=== PATIENT | male | born 1940 | race Caucasian/White ===

== ENCOUNTER 2021-12-12 15:29 | Inpatient (IN) ==
[2021-12-12] MEDS ORDERED: ACETAMINOPHEN 500 MG TABLET PO STA (16:04)
[2021-12-12 16:28] LABS: Basophils % 0.3 % (0.0-0.8); Hematocrit 39.6 VOL% (42.0-52.0); Hemoglobin 13.3 GM/DL (14.0-18.0); Immature Granulocytes % 1.3 %; Immature Granulocytes Absolute 0.08 #; Lymphocytes # 0.7 10*3/uL (1.4-4.0); Lymphocytes % 11.5 % (21.2-54.2); Mean Corpuscular HGB Conc 33.6 GM/DL (32-36); Mean Corpuscular Volume 88.8 FL (87-102); Mean Platelet Volume 9.3 FL (9.6-12.0); Monocytes # 1.6 10*3/uL (0.11-0.8); Monocytes % 26.7 % (1.7-12.7); Neutrophils % 60.2 % (38.7-73.9); Platelet Count 238 T/CUMM (130-400); Red Blood Count 4.46 MC/CUMM (3.8-5.5); Red Cell Distribution Width 14.1 % (9.3-17.3); White Blood Count 6.1 T/CUMM (4-12)
[2021-12-12 16:39] LABS: PT Patient Result 10.7 SECS (10.5-12.0)
[2021-12-12 16:46] LABS: Albumin 3.6 G/DL (3.4-5.0); Bilirubin,Total 0.8 MG/DL (0.20-1.00); Calcium 9.3 MG/DL (8.5-10.1); Osmolality,Calculated 269.2 MOS/KG (273-304); Potassium 3.5 MMOL/L (3.5-5.1); Total Protein 6.8 G/DL (6.4-8.2)
[2021-12-12 17:52] LABS: Lymphocytes 12 % (20-55); Total Cells Counted 100
[2021-12-12 17:53] LABS: Hypochromia Slight
[2021-12-12 17:54] LABS: Platelet Estimate Normal
[2021-12-12 18:49] LABS: Bilirubin,Urine Negative (Negative); Blood, Urine Moderate mg/dL (Negative); Glucose,Urine (UA) Negative (Negative); Ketones,Urine Negative (Negative); Mucus,Urine Occasional /LPF (Occasional); Nitrite,Urine Negative (Negative); Protein,Urine Negative (Negative); RBC,Urine 5 /HPF (0-4); Urine Appearance Clear (Clear); Urine Color Yellow (Yellow); Urine Urobilinogen 0.2 eU/dL (<2.0)
[2021-12-12] MEDS ORDERED: POTASSIUM CHLORIDE 20 MEQ TABLET PO PRN (19:55)
[2021-12-12] MEDS ORDERED: POTASSIUM CHLORIDE RIDER 10 MEQ/100 ML PREMIX IV PRN (19:55)
[2021-12-12] MEDS ORDERED: GLUCAGON 1 MG VIAL IM PRN (19:55)
[2021-12-12] MEDS ORDERED: SIMETHICONE CHEW 125 MG TABLET PO PRN (19:55)
[2021-12-12] MEDS ORDERED: ONDANSETRON 4 MG/2 ML VIAL IV PRN (19:55)
[2021-12-12] MEDS ORDERED: ACETAMINOPHEN 325 MG TABLET PO PRN (19:55)
[2021-12-12] MEDS ORDERED: MAGNESIUM SULF RIDER 2 GM/50 ML PREMIX IV PRN (19:55)
[2021-12-12] MEDS ORDERED: MAGNESIUM SULF RIDER 4 GM/100 ML PREMIX IV PRN (19:55)
[2021-12-12] MEDS ORDERED: guaiFENesin/DM ER 600-30 MG TABLET PO PRN (19:55)
[2021-12-12] MEDS ORDERED: DEXTROSE 10% 250 ML BAG IV PRN (20:20)
[2021-12-12] MEDS: DOCUSATE SODIUM 100 MG CAPSULE PO SCH (21:10)
[2021-12-12] MEDS: ENOXAPARIN 40 MG/0.4 ML SYRINGE SUBCUT SCH (21:15)
[2021-12-12] MEDS: SODIUM CHLORIDE 0.9% 1,000 ML IV SCH (21:20)
[2021-12-13] MEDS: SODIUM CHLORIDE 0.9% 1,000 ML IV SCH ×2 (03:01→07:45)
[2021-12-13 04:45] LABS: Basophils % 0.2 % (0.0-0.8); Hematocrit 35.4 VOL% (42.0-52.0); Hemoglobin 11.9 GM/DL (14.0-18.0); Immature Granulocytes % 1.3 %; Immature Granulocytes Absolute 0.06 #; Lymphocytes # 0.6 10*3/uL (1.4-4.0); Lymphocytes % 13.2 % (21.2-54.2); Mean Corpuscular HGB Conc 33.6 GM/DL (32-36); Mean Corpuscular Volume 88.7 FL (87-102); Mean Platelet Volume 9.2 FL (9.6-12.0); Monocytes # 1.2 10*3/uL (0.11-0.8); Monocytes % 25.7 % (1.7-12.7); Neutrophils % 59.6 % (38.7-73.9); Platelet Count 186 T/CUMM (130-400); Red Blood Count 3.99 MC/CUMM (3.8-5.5); Red Cell Distribution Width 14.3 % (9.3-17.3); White Blood Count 4.7 T/CUMM (4-12)
[2021-12-13 05:11] LABS: Band Neutrophils 1 % (0-10); Calcium 8.6 MG/DL (8.5-10.1); Lymphocytes 11 % (20-55); Osmolality,Calculated 273.8 MOS/KG (273-304); Potassium 3.6 MMOL/L (3.5-5.1); Total Cells Counted 100
[2021-12-13 05:12] LABS: Microcytosis Slight; Platelet Estimate Adequate
[2021-12-13 05:16] LABS: Ferritin 280.1 ng/mL (26-388)
[2021-12-13] MEDS: PANTOPRAZOLE 40 MG TABLET PO SCH (08:19)
[2021-12-13] MEDS: ASCORBIC ACID 500 MG TABLET PO SCH ×2 (08:19→22:20)
[2021-12-13] MEDS: CETIRIZINE 10 MG TABLET PO SCH (08:19)
[2021-12-13] MEDS: ZINC GLUCONATE 50 MG TABLET PO SCH (08:20)
[2021-12-13] MEDS: CHOLECALCIFEROL 1,000 UNIT TABLET PO SCH (08:20)
[2021-12-13] MEDS: DOCUSATE SODIUM 100 MG CAPSULE PO SCH ×2 (08:20→22:20)
[2021-12-13] MEDS ORDERED: REMDESIVIR 200 MG in SODIUM CHLORIDE 0.9% 210 ML IV ONE (17:00)
[2021-12-13] MEDS ORDERED: LOPERAMIDE 2 MG CAPSULE PO PRN (18:46)
[2021-12-13] MEDS: ENOXAPARIN 40 MG/0.4 ML SYRINGE SUBCUT SCH (22:20)
[2021-12-14 05:10] LABS: Basophils % 0.2 % (0.0-0.8); Hematocrit 38.3 VOL% (42.0-52.0); Hemoglobin 13.1 GM/DL (14.0-18.0); Immature Granulocytes % 0.8 %; Immature Granulocytes Absolute 0.05 #; Lymphocytes # 0.8 10*3/uL (1.4-4.0); Lymphocytes % 13.8 % (21.2-54.2); Mean Corpuscular HGB Conc 34.2 GM/DL (32-36); Mean Corpuscular Volume 87.8 FL (87-102); Mean Platelet Volume 9.5 FL (9.6-12.0); Monocytes # 1.1 10*3/uL (0.11-0.8); Monocytes % 17.8 % (1.7-12.7); Neutrophils % 67.4 % (38.7-73.9); Platelet Count 185 T/CUMM (130-400); Red Blood Count 4.36 MC/CUMM (3.8-5.5); Red Cell Distribution Width 14.4 % (9.3-17.3); White Blood Count 6.1 T/CUMM (4-12)
[2021-12-14 05:37] LABS: Albumin 3.1 G/DL (3.4-5.0); Bilirubin,Total 0.6 MG/DL (0.20-1.00); Calcium 8.6 MG/DL (8.5-10.1); Osmolality,Calculated 265.4 MOS/KG (273-304); Potassium 3.6 MMOL/L (3.5-5.1)
[2021-12-14 05:38] LABS: Band Neutrophils 1 % (0-10); Eosinophils 1 % (0-10); Lymphocytes 11 % (20-55); Platelet Estimate Adequate; Total Cells Counted 100
[2021-12-14] MEDS: REMDESIVIR 100 MG in SODIUM CHLORIDE 0.9% 100 ML IV SCH (08:04)
[2021-12-14] MEDS: ZINC GLUCONATE 50 MG TABLET PO SCH (08:05)
[2021-12-14] MEDS: allopurinoL 300 MG TABLET PO SCH (08:05)
[2021-12-14] MEDS: ATORVASTATIN 40 MG TABLET PO SCH (08:05)
[2021-12-14] MEDS: OMEGA 3 ACID ETHYL ESTERS 1 GM CAPSULE PO SCH (08:05)
[2021-12-14] MEDS: METOPROLOL SUCCINATE XL 25 MG TABLET PO SCH (08:06)
[2021-12-14] MEDS: CETIRIZINE 10 MG TABLET PO SCH (08:06)
[2021-12-14] MEDS: ASPIRIN CHEW 81 MG TABLET PO SCH (08:06)
[2021-12-14] MEDS: OXYBUTYNIN 5 MG TABLET PO SCH ×3 (08:06→21:39)
[2021-12-14] MEDS: lisinopriL 2.5 MG TABLET PO SCH (08:07)
[2021-12-14] MEDS: ASCORBIC ACID 500 MG TABLET PO SCH ×2 (08:07→21:39)
[2021-12-14] MEDS: CHOLECALCIFEROL 1,000 UNIT TABLET PO SCH (08:07)
[2021-12-14] MEDS: DOCUSATE SODIUM 100 MG CAPSULE PO SCH ×2 (08:08→21:40)
[2021-12-14] MEDS: TAMSULOSIN 0.4 MG CAPSULE PO SCH (08:08)
[2021-12-14] MEDS: PANTOPRAZOLE 40 MG TABLET PO SCH (08:08)
[2021-12-14] MEDS: ALBUTEROL 2.5 MG/3 ML NEB RESP TX SCH (15:14)
[2021-12-14] MEDS: ENOXAPARIN 40 MG/0.4 ML SYRINGE SUBCUT SCH (21:40)
[2021-12-15 04:09] LABS: Basophils % 0.6 % (0.0-0.8); Hemoglobin 12.1 GM/DL (14.0-18.0); Immature Granulocytes % 1.5 %; Immature Granulocytes Absolute 0.05 #; Lymphocytes # 1.1 10*3/uL (1.4-4.0); Lymphocytes % 32.6 % (21.2-54.2); Mean Corpuscular HGB Conc 33.6 GM/DL (32-36); Mean Corpuscular Volume 88.2 FL (87-102); Monocytes # 0.7 10*3/uL (0.11-0.8); Monocytes % 20.4 % (1.7-12.7); Neutrophils % 44.9 % (38.7-73.9); Platelet Count 161 T/CUMM (130-400); Red Blood Count 4.08 MC/CUMM (3.8-5.5); Red Cell Distribution Width 14.4 % (9.3-17.3); White Blood Count 3.3 T/CUMM (4-12)
[2021-12-15 04:32] LABS: Albumin 2.9 G/DL (3.4-5.0); Bilirubin,Total 0.5 MG/DL (0.20-1.00); Calcium 8.7 MG/DL (8.5-10.1); Osmolality,Calculated 273.8 MOS/KG (273-304); Potassium 3.6 MMOL/L (3.5-5.1); Total Protein 5.9 G/DL (6.4-8.2)
[2021-12-15 04:37] LABS: Atypical Lymphocytes Few; Band Neutrophils 2 % (0-10); Lymphocytes 37 % (20-55); Total Cells Counted 100
[2021-12-15 04:38] LABS: Microcytosis Slight
[2021-12-15] MEDS: ASPIRIN CHEW 81 MG TABLET PO SCH (09:02)
[2021-12-15] MEDS: ASCORBIC ACID 500 MG TABLET PO SCH ×2 (09:03→21:53)
[2021-12-15] MEDS: TAMSULOSIN 0.4 MG CAPSULE PO SCH (09:03)
[2021-12-15] MEDS: allopurinoL 300 MG TABLET PO SCH (09:03)
[2021-12-15] MEDS: DOCUSATE SODIUM 100 MG CAPSULE PO SCH ×2 (09:03→21:52)
[2021-12-15] MEDS: ATORVASTATIN 40 MG TABLET PO SCH (09:03)
[2021-12-15] MEDS: ZINC GLUCONATE 50 MG TABLET PO SCH (09:03)
[2021-12-15] MEDS: OMEGA 3 ACID ETHYL ESTERS 1 GM CAPSULE PO SCH (09:04)
[2021-12-15] MEDS: CHOLECALCIFEROL 1,000 UNIT TABLET PO SCH (09:04)
[2021-12-15] MEDS: CETIRIZINE 10 MG TABLET PO SCH (09:04)
[2021-12-15] MEDS: OXYBUTYNIN 5 MG TABLET PO SCH ×3 (09:04→21:53)
[2021-12-15] MEDS: PANTOPRAZOLE 40 MG TABLET PO SCH (09:05)
[2021-12-15] MEDS: REMDESIVIR 100 MG in SODIUM CHLORIDE 0.9% 100 ML IV SCH (09:07)
[2021-12-15] MEDS: lisinopriL 2.5 MG TABLET PO SCH (09:19)
[2021-12-15] MEDS: METOPROLOL SUCCINATE XL 25 MG TABLET PO SCH (09:19)
[2021-12-15] MEDS: ALBUTEROL 2.5 MG/3 ML NEB RESP TX SCH ×4 (11:29→22:39)
[2021-12-15] MEDS: ALBUTEROL INHALER 18 GM INH SCH ×4 (12:58→22:38)
[2021-12-15] MEDS: ENOXAPARIN 40 MG/0.4 ML SYRINGE SUBCUT SCH (21:53)
[2021-12-16] MEDS: ALBUTEROL INHALER 18 GM INH SCH ×4 (01:14→19:17)
[2021-12-16 04:48] LABS: Basophils % 0.3 % (0.0-0.8); Eosinophils % 0.3 % (0.00-10.9); Hematocrit 35.4 VOL% (42.0-52.0); Hemoglobin 11.9 GM/DL (14.0-18.0); Immature Granulocytes % 1.6 %; Immature Granulocytes Absolute 0.05 #; Lymphocytes # 1.1 10*3/uL (1.4-4.0); Lymphocytes % 34.5 % (21.2-54.2); Mean Corpuscular HGB Conc 33.6 GM/DL (32-36); Mean Corpuscular Volume 88.3 FL (87-102); Mean Platelet Volume 9.8 FL (9.6-12.0); Monocytes # 0.7 10*3/uL (0.11-0.8); Monocytes % 22.3 % (1.7-12.7); Platelet Count 160 T/CUMM (130-400); Red Blood Count 4.01 MC/CUMM (3.8-5.5); Red Cell Distribution Width 14.2 % (9.3-17.3); White Blood Count 3.1 T/CUMM (4-12)
[2021-12-16 05:08] LABS: Alanine Aminotransferase 18 U/L (16-61); Albumin 2.8 G/DL (3.4-5.0); Alkaline Phosphatase 47 U/L (45-117); Aspartate Amino Transferase 24 U/L (0-37); Bilirubin,Total < 0.39 MG/DL (0.20-1.00); Blood Urea Nitrogen 17 MG/DL (7-18); Calcium 8.5 MG/DL (8.5-10.1); Carbon Dioxide 26 MMOL/L (21-32); Chloride 107 MMOL/L (98-107); Glucose 95 MG/DL (74-106); Osmolality,Calculated 280.4 MOS/KG (273-304); Potassium 3.5 MMOL/L (3.5-5.1); Sodium 140 MMOL/L (136-145); Total Protein 5.9 G/DL (6.4-8.2)
[2021-12-16 05:23] LABS: Band Neutrophils 1 % (0-10); Lymphocytes 35 % (20-55); Total Cells Counted 100
[2021-12-16 05:24] LABS: Acanthocytes Few; Microcytosis Slight; Ovalocytes Slight; Platelet Estimate Adequate
[2021-12-16] MEDS: lisinopriL 2.5 MG TABLET PO SCH (09:32)
[2021-12-16] MEDS: ASCORBIC ACID 500 MG TABLET PO SCH ×2 (09:32→20:17)
[2021-12-16] MEDS: allopurinoL 300 MG TABLET PO SCH (09:32)
[2021-12-16] MEDS: ATORVASTATIN 40 MG TABLET PO SCH (09:32)
[2021-12-16] MEDS: TAMSULOSIN 0.4 MG CAPSULE PO SCH (09:32)
[2021-12-16] MEDS: DOCUSATE SODIUM 100 MG CAPSULE PO SCH ×2 (09:33→20:17)
[2021-12-16] MEDS: OMEGA 3 ACID ETHYL ESTERS 1 GM CAPSULE PO SCH (09:33)
[2021-12-16] MEDS: CHOLECALCIFEROL 1,000 UNIT TABLET PO SCH (09:33)
[2021-12-16] MEDS: CETIRIZINE 10 MG TABLET PO SCH (09:33)
[2021-12-16] MEDS: PANTOPRAZOLE 40 MG TABLET PO SCH (09:33)
[2021-12-16] MEDS: ZINC GLUCONATE 50 MG TABLET PO SCH (09:33)
[2021-12-16] MEDS: ASPIRIN CHEW 81 MG TABLET PO SCH (09:33)
[2021-12-16] MEDS: METOPROLOL SUCCINATE XL 25 MG TABLET PO SCH (09:33)
[2021-12-16] MEDS: REMDESIVIR 100 MG in SODIUM CHLORIDE 0.9% 100 ML IV SCH (09:34)
[2021-12-16] MEDS: OXYBUTYNIN 5 MG TABLET PO SCH ×3 (09:37→20:17)
[2021-12-16] MEDS ORDERED: FILGRASTIM-SNDZ 480 MCG/0.8 ML SYRINGE SUBCUT ONE (10:00)
[2021-12-16] MEDS ORDERED: diphenhydrAMINE CAP 25 MG CAPSULE PO PRN (18:33)
[2021-12-16] MEDS: ENOXAPARIN 40 MG/0.4 ML SYRINGE SUBCUT SCH (20:17)
[2021-12-17] MEDS: ALBUTEROL INHALER 18 GM INH SCH ×2 (01:46→06:00)
[2021-12-17 05:53] LABS: Basophils % 0.2 % (0.0-0.8); Eosinophils % 0.1 % (0.00-10.9); Hematocrit 34.9 VOL% (42.0-52.0); Hemoglobin 11.7 GM/DL (14.0-18.0); Immature Granulocytes % 5.4 %; Immature Granulocytes Absolute 1.43 #; Lymphocytes # 1.7 10*3/uL (1.4-4.0); Lymphocytes % 6.5 % (21.2-54.2); Mean Corpuscular HGB Conc 33.5 GM/DL (32-36); Mean Corpuscular Volume 89.5 FL (87-102); Mean Platelet Volume 10.2 FL (9.6-12.0); Monocytes # 1.5 10*3/uL (0.11-0.8); Monocytes % 5.5 % (1.7-12.7); Neutrophils % 82.3 % (38.7-73.9); Platelet Count 163 T/CUMM (130-400); Red Cell Distribution Width 14.1 % (9.3-17.3); White Blood Count 26.5 T/CUMM (4-12)
[2021-12-17 06:13] LABS: Bilirubin,Total 0.5 MG/DL (0.20-1.00); Calcium 8.7 MG/DL (8.5-10.1); Osmolality,Calculated 278.4 MOS/KG (273-304); Potassium 3.4 MMOL/L (3.5-5.1); Total Protein 5.8 G/DL (6.4-8.2)
[2021-12-17 06:17] LABS: Band Neutrophils 4 % (0-10); Lymphocytes 11 % (20-55); Platelet Estimate Normal; Total Cells Counted 100
[2021-12-17] MEDS ORDERED: POTASSIUM CHLORIDE 20 MEQ TABLET PO ONE (07:40)
[2021-12-17] MEDS: REMDESIVIR 100 MG in SODIUM CHLORIDE 0.9% 100 ML IV SCH (09:23)
[2021-12-17] MEDS: TAMSULOSIN 0.4 MG CAPSULE PO SCH (09:24)
[2021-12-17] MEDS: lisinopriL 2.5 MG TABLET PO SCH (09:24)
[2021-12-17] MEDS: ASPIRIN CHEW 81 MG TABLET PO SCH (09:24)
[2021-12-17] MEDS: ATORVASTATIN 40 MG TABLET PO SCH (09:24)
[2021-12-17] MEDS: METOPROLOL SUCCINATE XL 25 MG TABLET PO SCH (09:24)
[2021-12-17] MEDS: ZINC GLUCONATE 50 MG TABLET PO SCH (09:25)
[2021-12-17] MEDS: OXYBUTYNIN 5 MG TABLET PO SCH (09:25)
[2021-12-17] MEDS: ASCORBIC ACID 500 MG TABLET PO SCH (09:25)
[2021-12-17] MEDS: DOCUSATE SODIUM 100 MG CAPSULE PO SCH (09:25)
[2021-12-17] MEDS: allopurinoL 300 MG TABLET PO SCH (09:25)
[2021-12-17] MEDS: CHOLECALCIFEROL 1,000 UNIT TABLET PO SCH (09:25)
[2021-12-17] MEDS: CETIRIZINE 10 MG TABLET PO SCH (09:25)
[2021-12-17] MEDS: OMEGA 3 ACID ETHYL ESTERS 1 GM CAPSULE PO SCH (09:26)
[2021-12-17] MEDS: PANTOPRAZOLE 40 MG TABLET PO SCH (09:26)
[2021-12-17 13:36] VITALS: BP 124/68
[2021-12-21] MEDS ORDERED: EVOLOCUMAB 140 MG/ML SUBCUT SCH (09:00)
== END 2021-12-17 14:50 | disposition home health service (06) | DRG 177 ==
LOC: N.ED 15:29 → N.EDINP 19:24 → N.TELES 12-13 02:09
PROVIDERS: ADMIT Family Medicine; ATTEND Family Medicine